=== PATIENT | female | born 1995 ===

== ENCOUNTER 2016-06-22 19:50 | Emergency (ER) | payer SELFPAY ==
[~2016-06-22] VITALS: Ht 152.4 cm; Wt 59.0 kg
[2016-06-22 19:53] VITALS: BP 127/68; PULSE 74; RESP 16; TEMP 97.6; O2SAT 98
== END 2016-06-22 20:22 | disposition left against medical advice (07) ==
LOC: NED 19:50
DX: R10.9 Unspecified abdominal pain (principal)
CPT/HCPCS: 99281